=== PATIENT | female | born 1960 | race Caucasian/White ===

== ENCOUNTER → 2017-04-04 | Outpatient (CLI) | payer OTHER | END | disposition home or self-care (01) | LOC: RAD 08:26 | PROVIDERS: ATTEND Family Medicine | DX: J98.4 Other disorders of lung (principal); M50.323 Other cervical disc degeneration at C6-C7 level | CPT/HCPCS: 71020 ==

== ENCOUNTER → 2017-04-09 | Outpatient (CLI) | payer OTHER | END | disposition home or self-care (01) | LOC: CFH 14:17 | PROVIDERS: ATTEND Neurological Surgery | DX: D86.2 Sarcoidosis of lung with sarcoidosis of lymph nodes (principal); R91.1 Solitary pulmonary nodule | CPT/HCPCS: 71260 ==